=== PATIENT | male | born 1985 | race African-American/Black ===

== ENCOUNTER → 2016-12-08 | Emergency (ER) | payer MEDICAID ==
[2016-12-09 08:35] LABS: APPEARANCE CLOUDY (CLEAR); COLOR YELLOW (YELLOW); GLUCOSE NEGATIVE (NEGATIVE); KETONE SMALL mg/dL (NEGATIVE); LEUKOCYTE ESTERASE TRACE (NEGATIVE); NITRITE NEGATIVE (NEGATIVE); PROTEIN 3+ mg/dL (NEGATIVE); SPECIFIC GRAVITY 1.025 (1.005-1.020); UROBILINOGEN NORMAL (NORMAL)
[2016-12-09 08:36] LABS: AMORPHOUS SEDIMENT >1+ /lpf (NONE SEEN); BACTERIA MANY /hpf (NONE SEEN); BILIRUBIN NEGATIVE (NEGATIVE); GRANULAR CAST 0-5 /lpf (NONE SEEN); HYALINE CAST 0-5 /lpf (NONE SEEN); RED CELLS - URINE 25-50 /hpf (0-5)
[2016-12-09 08:38] LABS: BASOPHILS 0.3 % (0.0-2.0); EOSINOPHILS 1.1 % (0-7); HEMOGLOBIN 18.7 g/dL (13.5-17.5); IMMATURE GRANULOCYTES 2.1 % (0-5); LYMPHOCYTES 44.3 % (15-50); MCH 32.1 pg (26.0-34.0); MCV 89.2 fL (80.0-100.0); MEAN PLATELET VOLUME 10.9 fL (7.4-10.4); MONOCYTES 6.1 % (2-11); NEUTROPHILS 46.1 % (40-80); PLATELET COUNT 288 10x3/uL (130-400); RBC 5.83 10x6/uL (4.20-6.10); RDW 13.2 % (11.5-14.5); WBC 17.6 10x3/uL (4.8-10.8)
[2016-12-09 08:41] LABS: UDS - AMPHET POSITIVE QUAL (NEGATIVE); UDS - BARB NEGATIVE QUAL (NEGATIVE); UDS - BENZO POSITIVE QUAL (NEGATIVE); UDS - COCAINE NEGATIVE QUAL (NEGATIVE); UDS - METH NEGATIVE QUAL (NEGATIVE); UDS - OPIATE NEGATIVE QUAL (NEGATIVE); UDS - PCP NEGATIVE QUAL (NEGATIVE); UDS - THC POSITIVE QUAL (NEGATIVE)
[2016-12-09 08:42] LABS: ALBUMIN 4.3 g/dL (3.4-5.0); ANION GAP 39.3 mmol/L (8-16); BILIRUBIN - TOTAL 0.67 mg/dL (0.2-1.3); CALCIUM 9.6 mg/dL (8.5-10.1); PROTEIN - SERUM 8.1 g/dL (6.4-8.2)
[2016-12-09 08:43] LABS: CARBON DIOXIDE 6.7 mmol/L (21.0-32.0)
== END | disposition home or self-care (01) ==
LOC: D.ER 23:15
PROVIDERS: Family Medicine
DX: R41.82 Altered mental status, unspecified (principal)